=== PATIENT | male | born 1965 | race Caucasian/White ===

== ENCOUNTER 2017-06-02 11:20 | Inpatient (IN) | payer OTHER ==
[~2017-06-02] VITALS: Ht 162.6 cm; Wt 88.4 kg
[~2017-06-02 11:20] MED LIST: ATORVASTATIN CA20 MG PO; CHERATUSSIN DA473 ML PO; CITALOPRAM HBR20 MG PO; HYDROCODON-ACE1 EAC7 PO; LEVAQUIN500 MG PO; LOSARTAN POTASS50 MG PO; METOPROLOL TART25 MG PO; MIRALAX17 GM PO; PHENERGAN-CODE120 ML PO; PREDNISONE50 MG PO; PROVENTIL HFA6.7 GM IH; ZITHROMAX Z-PA250 MG PO
[2017-06-02 11:49] LABS: EOSINOPHIL (%) 7.4 % (0-5); EOSINOPHIL COUNT 0.4 K/uL (0-0.3); HEMATOCRIT 42.3 % (38.0-50.0); IMMATURE GRANULOCYTE (%) 0.2 % (0.0-0.7); INSTRUMENT ABS NEUTROPHIL CT 2.9 K/uL; LYMPHOCYTE COUNT 0.9 K/uL (1.0-2.8); MCH 30.2 PG (29.0-34.0); MCHC 33.8 G/DL (30.0-36.0); MCV 89.2 FL (86-99); MEAN PLAT.VOLUME 11.4 uM^3 (9.0-12.4); MONOCYTE (%) 16.4 % (3-12); MONOCYTE COUNT 0.8 K/uL (0-0.8); NEUTROPHIL (%) 57.4 % (45-76); NEUTROPHIL COUNT 2.9 K/uL (1.8-6.4); PLATELET COUNT 163 K/uL (156-360); RBC DIS.WIDTH-CV 12.9 % (11.8-14.6); RBC DIS.WIDTH-SD 42.5 % (39-53); RED BLOOD COUNT 4.74 M/uL (4.00-5.50)
[2017-06-02 11:58] LABS: CHLORIDE 110 mEq/L (99-109); POTASSIUM 3.7 mEq/L (3.7-5.4); SODIUM 143 mEq/L (136-147)
[2017-06-02 12:00] LABS: GLUCOSE 95 mg/dL (70-99)
[2017-06-02 12:02] LABS: ANION GAP 10 MEQ/L (2-14)
[2017-06-02 12:04] LABS: GFR ESTIMATE (CALCULATED) > 59 mL/min/
[2017-06-02 12:05] LABS: UREA NITROGEN (BUN) 15 mg/dL (9-23)
[2017-06-02] MEDS ORDERED: LOSARTAN POTAS100 MG PO (14:11)
[2017-06-02] MEDS ORDERED: FISH OIL 1,0001 EAC7 PO (14:12)
[2017-06-02] MEDS ORDERED: NAPROSYN250 MG PO (14:13)
[2017-06-02] MEDS ORDERED: NAPROSYN500 MG PO (14:17)
[2017-06-02 15:33] VITALS: BP 143/85
[2017-06-02 20:39] VITALS: BP 138/80
[2017-06-02 23:15] VITALS: BP 162/88
[2017-06-03 05:08] VITALS: BP 139/97
[2017-06-03 11:33] VITALS: BP 159/99
[2017-06-03 15:50] VITALS: BP 129/83
[2017-06-03 20:05] VITALS: BP 162/84
[2017-06-03 23:07] VITALS: BP 141/94
[2017-06-04] VITALS (8 sets, daily range): BP systolic 86–146; BP diastolic 74–96
[2017-06-04 21:21] LABS: HEMATOCRIT 44.6 % (38.0-50.0); MCH 30.3 PG (29.0-34.0); MCHC 32.7 G/DL (30.0-36.0); MCV 92.5 FL (86-99); MEAN PLAT.VOLUME 11.6 uM^3 (9.0-12.4); RBC DIS.WIDTH-CV 13.3 % (11.8-14.6); RBC DIS.WIDTH-SD 45.5 % (39-53); RED BLOOD COUNT 4.82 M/uL (4.00-5.50)
[2017-06-04 21:31] LABS: PLATELET COUNT 232 K/uL (156-360)
[2017-06-04 21:32] LABS: ANION GAP 9 MEQ/L (2-14); CHLORIDE 105 MEQ/L (99-109); POTASSIUM 3.8 MEQ/L (3.7-5.4); SAMPLE HEMOLYSIS CHECK 0; SAMPLE ICTERIC CHECK 0; SAMPLE LIPEMIA CHECK 1; SODIUM 142 MEQ/L (136-147); TOTAL BILIRUBIN 0.3 MG/DL (0.0-1.0)
[2017-06-04 21:38] LABS: ALKALINE PHOSPHATASE 74 IU/L (3-129); GFR ESTIMATE (CALCULATED) > 59 mL/min/
[2017-06-04 21:42] LABS: TROP-I INTERPRETATION NEGATIVE; TROPONIN-I < 0.01 ng/mL (0.0-0.30)
[2017-06-04 21:47] LABS: GLUCOSE 205 mg/dL (70-99); UREA NITROGEN (BUN) 27 mg/dL (9-23)
[2017-06-04 22:07] LABS: INTER. NORMALIZED RATIO 0.9; PROTHROMBIN TIME 10.5 SEC (10.2-12.9)
[2017-06-04 22:09] LABS: D-DIMER ELISA < 150.00 ng/mLDDU (<230)
[2017-06-04 22:10] LABS: PTT 27.1 SEC (25-37)
[2017-06-04 23:26] LABS: METH RESISTANT S AUREUS PCR NEGATIVE (NEGATIVE)
[2017-06-04 23:38] LABS: PROBE CHECK PASS; SPECIMEN PROCESSING CONTROL PASS
[2017-06-05] VITALS (27 sets, daily range): BP systolic 0–148; BP diastolic 0–103
[2017-06-05 04:07] LABS: EOSINOPHIL (%) 0 % (0-5); HEMATOCRIT 35.8 % (38.0-50.0); IMMATURE GRANULOCYTE (%) 0.7 % (0.0-0.7); IMMATURE GRANULOCYTE COUNT 0.1 K/uL; INSTRUMENT ABS NEUTROPHIL CT 8.8 K/uL; LYMPHOCYTE COUNT 0.7 K/uL (1.0-2.8); MCH 30.6 PG (29.0-34.0); MCHC 33.2 G/DL (30.0-36.0); MONOCYTE (%) 5.2 % (3-12); MONOCYTE COUNT 0.5 K/uL (0-0.8); NEUTROPHIL COUNT 8.8 K/uL (1.8-6.4); RBC DIS.WIDTH-CV 13.3 % (11.8-14.6); RBC DIS.WIDTH-SD 45.1 % (39-53); RED BLOOD COUNT 3.89 M/uL (4.00-5.50); WHITE BLOOD COUNT 10.1 K/uL (4.1-10.2)
[2017-06-05 04:14] LABS: CHLORIDE 114 mEq/L (99-109); POTASSIUM 4.5 mEq/L (3.7-5.4); SODIUM 143 mEq/L (136-147)
[2017-06-05 04:17] LABS: GLUCOSE 147 mg/dL (70-99)
[2017-06-05 04:18] LABS: ANION GAP 7 MEQ/L (2-14)
[2017-06-05 04:19] LABS: TOTAL BILIRUBIN 0.4 mg/dL (0.0-1.0)
[2017-06-05 04:20] LABS: ALKALINE PHOSPHATASE 55 IU/L (3-129); GFR ESTIMATE (CALCULATED) > 59 mL/min/
[2017-06-05 04:21] LABS: UREA NITROGEN (BUN) 31 mg/dL (9-23)
[2017-06-05 04:25] LABS: TROP-I INTERPRETATION POSITIVE
[2017-06-05 04:29] LABS: TROPONIN-I 0.69 ng/mL (0.0-0.30)
[2017-06-05 05:24] LABS: MEAN PLAT.VOLUME 11.3 uM^3 (9.0-12.4); PLAT.SUFFICIENCY ADEQUATE
[2017-06-05 05:34] LABS: PLATELET COUNT 152 K/uL (156-360)
[2017-06-05 10:52] LABS: TROP-I INTERPRETATION POSITIVE
[2017-06-05 15:41] LABS: TROP-I INTERPRETATION POSITIVE; TROPONIN-I 1.54 ng/mL (0.0-0.30)
[2017-06-06] VITALS (12 sets, daily range): BP systolic 127–193; BP diastolic 75–131
[2017-06-06 08:21] LABS: INTERNAL CONTROL VALID? YES
[2017-06-06 10:54] LABS: ANION GAP 7 MEQ/L (2-14); CHLORIDE 110 MEQ/L (99-109); GFR ESTIMATE (CALCULATED) > 59 mL/min/; POTASSIUM 3.6 MEQ/L (3.7-5.4); SAMPLE HEMOLYSIS CHECK 0; SAMPLE ICTERIC CHECK 0; SAMPLE LIPEMIA CHECK 0; SODIUM 143 MEQ/L (136-147); UREA NITROGEN (BUN) 21 mg/dL (9-23)
[2017-06-06 10:55] LABS: GLUCOSE 104 mg/dL (70-99)
[2017-06-06 11:05] LABS: TROP-I INTERPRETATION POSITIVE; TROPONIN-I 0.86 ng/mL (0.0-0.30)
[2017-06-07] VITALS (11 sets, daily range): BP systolic 120–163; BP diastolic 91–108
[2017-06-07 06:07] LABS: HEMATOCRIT 37.5 % (38.0-50.0); MCH 30.2 PG (29.0-34.0); MCHC 33.9 G/DL (30.0-36.0); MCV 89.3 FL (86-99); MEAN PLAT.VOLUME 11.7 uM^3 (9.0-12.4); PLATELET COUNT 145 K/uL (156-360); RBC DIS.WIDTH-CV 13.1 % (11.8-14.6); RBC DIS.WIDTH-SD 42.9 % (39-53); WHITE BLOOD COUNT 6.3 K/uL (4.1-10.2)
[2017-06-07 06:40] LABS: ANION GAP 8 MEQ/L (2-14); CHLORIDE 104 MEQ/L (99-109); GFR ESTIMATE (CALCULATED) > 59 mL/min/ (58.99-99999); GLUCOSE 76 mg/dL (70-99); POTASSIUM 3.5 MEQ/L (3.7-5.4); SAMPLE HEMOLYSIS CHECK 0; SAMPLE ICTERIC CHECK 0; SAMPLE LIPEMIA CHECK 0; SODIUM 142 MEQ/L (136-147); UREA NITROGEN (BUN) 13 mg/dL (9-23)
[2017-06-08 04:53] VITALS: BP 121/74
[2017-06-08 10:07] VITALS: BP 144/104
[2017-06-08 14:21] LABS: ADD MIUA? YES; BILIRUBIN NEGATIVE; BLOOD SMALL; COLOR YELLOW ((YELLOW)); GLUCOSE (STRIP) NEGATIVE; KETONES NEGATIVE; LEUKOCYTES NEGATIVE; NITRITE NEGATIVE; PROTEIN (STRIP) NEGATIVE; SPECIFIC GRAVITY 1.012 (1.000-1.030); UROBILINOGEN 0.2 MG/DL (0.2-1.0)
[2017-06-08 14:40] LABS: BACTERIA RARE /HPF; EPITHELIAL CELLS RARE /HPF; MUCUS TRACE /LPF; WHITE BLOOD CELLS 0-5 /HPF (0-5)
[2017-06-08 18:03] VITALS: BP 149/99
[2017-06-08 19:16] VITALS: BP 137/91
[2017-06-08 23:49] VITALS: BP 139/90
[2017-06-09 04:43] VITALS: BP 121/76
[2017-06-09 06:45] LABS: HEMATOCRIT 40.2 % (38.0-50.0); MCHC 34.6 G/DL (30.0-36.0); MCV 86.8 FL (86-99); MEAN PLAT.VOLUME 11.2 uM^3 (9.0-12.4); PLATELET COUNT 182 K/uL (156-360); RBC DIS.WIDTH-SD 40.3 % (39-53); RED BLOOD COUNT 4.63 M/uL (4.00-5.50)
[2017-06-09 07:09] LABS: ANION GAP 10 MEQ/L (2-14); CHLORIDE 105 MEQ/L (99-109); GFR ESTIMATE (CALCULATED) > 59 mL/min/ (58.99-99999); GLUCOSE 92 mg/dL (70-99); POTASSIUM 4.1 MEQ/L (3.7-5.4); SAMPLE HEMOLYSIS CHECK 1; SAMPLE ICTERIC CHECK 0; SAMPLE LIPEMIA CHECK 0; SODIUM 141 MEQ/L (136-147); UREA NITROGEN (BUN) 17 mg/dL (9-23)
[2017-06-09] MEDS ORDERED: XARELTO20 MG PO (08:36)
[2017-06-09] MEDS ORDERED: CLOPIDOGREL75 MG PO (08:36)
[2017-06-09] MEDS ORDERED: LOPRESSOR25 MG PO (08:37)
[2017-06-09] MEDS ORDERED: ASPIR-LOW81 MG PO (08:39)
[2017-06-09] MEDS ORDERED: ADVAIR HFA120 INHALA IH (08:40)
[2017-06-09 09:38] VITALS: BP 146/96
[2017-06-09] MEDS ORDERED: SPIRIVA RESPIMAT4 GM IH (10:08)
[2017-06-09 12:21] VITALS: BP 154/103
[2017-06-09] MEDS ORDERED: INCRUSE ELLI62.5 MCG IH (13:39)
[2017-06-09] MEDS ORDERED: BREO ELLIPTA I1 EACH IH (13:39)
== END 2017-06-09 15:51 | disposition home health service (06) | DRG 202 ==
LOC: EME 11:20 → EDOF 13:34 → ENRESERV 13:36 → EDOF 13:43 → ENRESERV 14:19 → 3EAST 15:11 → 4WEST 06-03 10:25 → 3EAST 06-03 10:25 → ENRESERV 06-04 21:14 → 3EAST 06-04 21:53 → ENRESERV 06-04 21:54 → 4WEST 06-04 21:55 → ENRESERV 06-07 09:16 → CANRESERV 06-07 09:16 → ENRESERV 06-07 09:17 → 3EAST 06-07 17:50
PROVIDERS: Emergency Medicine; Hospitalist; Internal Medicine; Internal Medicine Critical Care Medicine; Physician Assistant
DX: J20.9 Acute bronchitis, unspecified (principal); I21.4 Non-ST elevation (NSTEMI) myocardial infarction; I48.0 Paroxysmal atrial fibrillation; E78.5 Hyperlipidemia, unspecified; R09.02 Hypoxemia; I10 Essential (primary) hypertension; R31.0 Gross hematuria; G80.9 Cerebral palsy, unspecified; Z68.30 Body mass index [BMI] 30.0-30.9, adult; E66.9 Obesity, unspecified; H35.30 Unspecified macular degeneration; G47.33 Obstructive sleep apnea (adult) (pediatric); I25.2 Old myocardial infarction; Z79.01 Long term (current) use of anticoagulants; Z82.49 Family history of ischemic heart disease and other diseases of the circulatory system
CPT/HCPCS: 71010; 71020; 71275; 76770; 80048; 80053; 81003; 83605; 84484; 85025; 85027; 85379; 85610; 85730; 87040; 87086; 87449; 87502; 87641; 93005; 93306; 94640; 94640 76; 94660; 94799; 99281; 99285; G0378; J0153; J0282; J0456; J0696; J1160; J1644; J2930; J7030; J7050